=== PATIENT | female | born 1985 | race Hispanic/Latino ===

== ENCOUNTER 2019-08-21 19:56 | Emergency (ER) ==
[2019-08-21 21:29] LABS: BASO# 0.02 X1000 (0.0-0.2); BASO% 0.2 % (0.0-0.8); EOS# 0.07 X1000 (0.0-0.7); EOS% 0.6 % (0.0-10.0); HEMATOCRIT 39.8 % (37.0-47.0); HEMOGLOBIN 13.3 g/dL (12.0-16.0); IMM GRAN# 0.02 X1000 (0.0-0.04); IMM GRAN% 0.2 % (0.0-0.5); LYMPH% 20.6 % (20.5-51.1); MCH 29.1 PG (27-31); MCHC 33.4 g/dL (33-37); MCV 87.1 FL (81-99); MONO# 0.77 X1000 (0.11-0.59); MONO% 6.3 % (1.7-9.3); MPV 9.5 FL (7.4-10.4); NEUT# 8.75 X1000 (1.4-6.5); NEUT% 72.1 % (42.2-75.2); PLT 298 X1000 (130-400); RBC 4.57 XMIL (4.2-5.4); WBC 12.13 X1000 (4.8-10.8)
[2019-08-21 21:36] LABS: BILIRUBIN URINE NEGATIVE (NEGATIVE); BLOOD URINE NEGATIVE (NEGATIVE); CLARITY CLEAR (CLEAR); COLOR YELLOW; GLUCOSE URINE NEGATIVE (NEGATIVE); KETONE URINE 2+(Moderate) mg/dL (NEGATIVE); LEUKOCYTES URINE TRACE (NEGATIVE); NITRITE URINE NEGATIVE (NEGATIVE); PROTEIN URINE NEGATIVE (NEGATIVE); UROBILINOGEN URINE NORMAL
[2019-08-21] MEDS ORDERED: SODIUM CHLORIDE 0.9% INJ ONE (21:37)
[2019-08-21] MEDS ORDERED: PEPCID IV ONE (21:37)
[2019-08-21] MEDS ORDERED: NS 1,000 ML IV ONE ×2 (21:38→23:04)
[2019-08-21] MEDS ORDERED: ZOFRAN IV ONE (21:38)
[2019-08-21 21:47] LABS: URINE BACTERIA 3+ /HFP; URINE EPITHELIAL CELLS <10 /HPF (<10); URINE YEAST NONE SEEN /HPF
[2019-08-21 21:48] LABS: URINE CAST NONE SEEN /LPF
[2019-08-21 21:49] LABS: URINE SOURCE CLEAN CATCH; URINE WBC <10 /HPF (<10)
[2019-08-21 21:54] LABS: AGAP 9; ALBUMIN 4.8 g/dL (3.5-5.0); ALKALINE PHOSPHATASE 78 U/L (32-104); AMYLASE 38 U/L (20-200); BUN 6 mg/dL (8-22); CALCIUM 10.5 mg/dL (8.8-10.2); CHLORIDE 102 mmol/L (98-107); COSMO 275; CREATININE 0.5 mg/dL (0.5-0.9); ESTIMATED GFR > 60; GLUCOSE 91 mg/dL (70-104); GOT 16 U/L (10-30); GPT 17 U/L (10-36); LIPASE 16 U/L (13-60); POTASSIUM 4.3 mmol/L (3.5-5.1); SODIUM 139 mmol/L (136-145); TCO2 28 mmol/L (25-35); TOTAL PROTEIN 8.4 g/dL (6.3-8.3)
[2019-08-21] MEDS ORDERED: TORADOL IV ONE (22:08)
[2019-08-21] MEDS ORDERED: ZOFRAN IV PRN (23:07)
[2019-08-21] MEDS ORDERED: TORADOL IV PRN (23:07)
[2019-08-21] MEDS ORDERED: MORPHINE IV PRN (23:07)
--- NOTE | 2019-08-21 23:11 | PROVIDER DOCUMENTATION ---
This chart was entered by Bernardino Wade Scribe, acting as scribe for Marii Cho MD. HPI-Chest Pain - General Chief Complaint: Abdominal Pain Stated Complaint: ABD PAIN Time Seen by Provider: 08/21/19 20:46 Source: patient, family, interpreter deaf Allergies/Adverse Reactions: Patient Allergies Allergy/AdvReac Type Severity Reaction Status Date / Time No Known Allergies Allergy Verified 08/21/19 20:04 Home Medications: Home Medication List Medication Instructions Recorded Confirmed Last Taken Type Phentermine HCl 37.5 mg PO DAILY 08/21/19 08/21/19 Unknown History - History of Present Illness-CP Nature of Presenting Problem: Pt is a 34 yof who presents to the ED with a CC of chest pain/epigastric pain. Pt states her chest pain began this morning after she had some breakfast and states it is a constant pain. Pt also complains of nausea, and vomiting x1. Pt denies a fever, diarrhea, and chest wall pain. She has not tried anything at home for it. Denies any sick contacts. Location: reports: central Chest Pain Radiation: reports: epigastric Quality of Pain: reports: aching Severity in ED: mild Onset/Duration: this morning Timing: still present, constant Associated Symptoms: reports: abdominal pain, nausea, vomiting Prior Chest Pain/Cardiac Workup: reports: no prior chest pain Similar Symptoms Previously?: No Recently Seen Here or By Another Healthcare Provider: No Review of Systems - Adult - REVIEW OF SYSTEMS - ADULT Constitutional: reports: see HPI Eyes: reports: no symptoms reported Ears, Nose, Mouth & Throat: reports: no symptoms reported Cardiovascular: reports: see HPI, chest pain Respiratory: reports: no symptoms reported Gastrointestinal: reports: see HPI, abdominal pain, nausea, vomiting Genitourinary: reports: no symptoms reported Musculoskeletal: reports: no symptoms reported Integumentary: reports: no symptoms reported Neurological: reports: no symptoms reported Psychiatric: reports: no symptoms reported Endocrine: reports: no symptoms reported Hematologic/Lymphatic: reports: no symptoms reported Allergic/Immunologic: reports: no symptoms reported All Other Systems: Reviewed and Negative Past History - Adult - PAST MEDICAL HISTORY-ADULT Review of Records: reports: Old Records Reviewed, Nursing Assessment Review, Medications Reviewed, Social history reviewed & non-contributory. Major Childhood Illnesses: reports: denies history Cardiovascular: reports: denies history Respiratory: reports: denies history Gastrointestinal: reports: denies history Obstetrical/Gynecological: reports: denies history Genitourinary: reports: denies history Musculoskeletal: reports: denies history Neurological: reports: denies history Endocrine/Immune: reports: denies history Other Conditions: reports: denies history - IMMUNIZATION STATUS Childhood Immunizations: See Nurse Assessment Flu Vaccine: See Nurse Assessment - FAMILY HISTORY Family History: reviewed, not pertinent - SOCIAL HISTORY Smoking: denies, non-smoker Substance Use: none/never, denies Alcohol Use Frequency: never Physical Exam-General - PHYSICAL EXAM-ADULT Initial Vital Signs Reviewed: Yes - CONSTITUTIONAL General Appearance: alert, mild distress (uncomfortable appearing) - EYES Eyes: PERRL/EOMI - HEAD, EARS, NOSE, MOUTH & THROAT HENMT: moist mucous membranes - NECK Neck: non-tender, full range of motion - RESPIRATORY Respiratory: chest non-tender, lungs clear, normal breath sounds, no respiratory distress, no accessory muscle use - CARDIOVASCULAR Cardiovascular: normal peripheral pulses, regular rate, rhythm, no murmur - GASTROINTESTINAL (ABDOMEN) Abdominal Exam: soft, tenderness (upper abdomen, worse in epigastric area). negative: distended, guarding, rigid - MUSCULOSKELETAL Back Exam: normal inspection Extremity: normal range of motion, non-tender, normal gait - SKIN Integumentary: normal color, warm/dry - NEUROLOGIC Neurologic: grossly normal, no motor/sensory deficits - PSYCHIATRIC Psych/Mental Status: normal mood/affect, normal thought content, normal thought process, oriented x 3 - HEART Score HEART Score: History: Slightly Suspicious HEART Score: Age: < or = 45 Years HEART Score: Risk Factors for Atherosclerotic Disease: No Risk Factors Known HEART Score: Troponin: < or = Normal Limit Progress - PLAN OF CARE/RESULTS Progress/Plan/Lab Results: Vital Signs - 8 hr 08/21/19 20:00 Temperature 98.1 F Pulse Rate 104 H Respiratory Rate 20 Blood Pressure 119/84 O2 Sat by Pulse Oximetry 98 Bedside Urine ED: Urine Bedside Start: 08/21/19 20:53 Freq: ORDERED Status: Active Protocol: Activity Type Activity Date Activity User E-Sign Co-Sign Detail Recorded Client Recorded Date Recorded By Document 08/21/19 21:10 [id number] 08/21/19 21:12 [id number] 08/21/19 21:10 Point of Care [Bedside Point of Care] -Lot # [id number] - Results Negative -Control Line Visible? Yes Laboratory Results - last 24 hr 08/21/19 08/21/19 08/21/19 20:15 21:15 21:15 WBC 12.13 H RBC 4.57 Hgb 13.3 Hct 39.8 MCV 87.1 MCH 29.1 MCHC 33.4 RDW Std Deviation 12.0 Plt Count 298 MPV 9.5 Immature Gran % (Auto) 0.2 Neut % (Auto) 72.1 Lymph % (Auto) 20.6 Cocke % (Auto) 6.3 Eos % (Auto) 0.6 Baso % (Auto) 0.2 Immature Gran # (Auto) 0.02 Neut # (Auto) 8.75 H Lymph # (Auto) 2.50 Cocke # (Auto) 0.77 H Eos # (Auto) 0.07 Baso # (Auto) 0.02 Sodium 139 Potassium 4.3 Chloride 102 Carbon Dioxide 28 Anion Gap 9 BUN 6 L Creatinine 0.5 Estimated GFR/1.73 m2 > 60 BUN/Creatinine Ratio 12 Glucose 91 Calculated Osmolality 275 Calcium 10.5 H Total Bilirubin 1.40 H AST 16 ALT 17 Alkaline Phosphatase 78 Troponin T Total Protein 8.4 H Albumin 4.8 Globulin 4.0 Albumin/Globulin Ratio 1.0 Amylase 38 Lipase 16 Urine Source CLEAN CATCH Urine Color YELLOW Urine Clarity CLEAR Urine pH 8.0 Ur Specific [place] 1.010 Urine Protein NEGATIVE Urine Ketones 2+(Moderate) A Urine Blood NEGATIVE Urine Nitrite NEGATIVE Urine Bilirubin NEGATIVE Urine Urobilinogen NORMAL Urine Microscopic RBC Not Reportable Urine WBC TRACE A Urine Microscopic WBC <10 Ur Epithelial Cells <10 Urine Crystals Urine Bacteria 3+ Urine Casts NONE SEEN Urine Yeast NONE SEEN Urine Glucose NEGATIVE 08/21/19 21:58 WBC RBC Hgb Hct MCV MCH MCHC RDW Std Deviation Plt Count MPV Immature Gran % (Auto) Neut % (Auto) Lymph % (Auto) Cocke % (Auto) Eos % (Auto) Baso % (Auto) Immature Gran # (Auto) Neut # (Auto) Lymph # (Auto) Cocke # (Auto) Eos # (Auto) Baso # (Auto) Sodium Potassium Chloride Carbon Dioxide Anion Gap BUN Creatinine Estimated GFR/1.73 m2 BUN/Creatinine Ratio Glucose Calculated Osmolality Calcium Total Bilirubin AST ALT Alkaline Phosphatase Troponin T < 0.010 Total Protein Albumin Globulin Albumin/Globulin Ratio Amylase Lipase Urine Source Urine Color Urine Clarity Urine pH Ur Specific Etna Urine Protein Urine Ketones Urine Blood Urine Nitrite Urine Bilirubin Urine Urobilinogen Urine Microscopic RBC Urine WBC Urine Microscopic WBC Ur Epithelial Cells Urine Crystals Urine Bacteria Urine Casts Urine Yeast Urine Glucose Orders Category Date Time Status Admit [facility] Routine [id number] 08/21/19 23:04 Active Activity - Up Ad Jeri ORDERED Care 08/21/19 23:04 Active ED: Urine Bedside ORDERED Care 08/21/19 20:53 Active Neurological Check PRN Care 08/21/19 23:04 Active Saline Loc DIRECTED Care 08/21/19 23:04 Active Saline Loc NOW Care 08/21/19 20:53 Active Vital Signs Order Q 8-HR .ASSESS Care 08/21/19 23:04 Active NPO Diet 08/21/19 23:[address] ABD/PELVIS W/IV CONT ONLY [CT] Stat Exams 08/21/19 21:37 Taken AMYLASE [CHEM] Stat Lab 08/21/19 21:15 Completed CBC WITH ELECTRONIC DIFF [HEME] Stat Lab 08/21/19 21:15 Completed COMPREHENSIVE METABOLIC PANEL [CHEM] Stat Lab 08/21/19 21:15 Completed LIPASE [CHEM] Stat Lab 08/21/19 21:15 Completed TROPONIN T Stat Lab 08/21/19 21:[address] W/POSS RFLX CULT [URINALYSIS] Stat Lab 08/21/19 20:15 Completed URINE CULTURE [RM] Routine Lab 08/21/19 21:49 Ordered 0.9% Sodium Chloride Inj [Ns] 1,000 ml Med 08/21/19 23:04 Active IV 125 mls/hr 0.9% Sodium Chloride Inj [Ns] 1,000 ml Med 08/21/19 21:38 Discontinued IV 999 mls/hr Famotidine [Pepcid] Med 08/21/19 21:37 Discontinued 20 mg IV NOW ONE Ketorolac [Toradol] Med 08/21/19 22:08 Discontinued 30 mg IV NOW ONE Ketorolac [Toradol] Med 08/21/19 23:07 Active 30 mg IV Q6H PRN PRN Morphine Med 08/21/19 23:07 Active 2 mg IV Q2H PRN PRN Ondansetron [Zofran] Med 08/21/19 21:38 Discontinued 4 mg IV NOW ONE Ondansetron [Zofran] Med 08/21/19 23:07 Active 4 mg IV Q4H PRN PRN Piperacillin/Tazobactam [Zosyn] 4.5 gm Med 08/21/19 23:15 Active 0.9% Sodium Chloride Inj [Ns] 100 ml IV Q6H Sodium Chloride 0.9% Med 08/21/19 21:37 Discontinued 5 - 10 ml INJ NOW ONE Transfer/Admit Order [TRANSFER] Routine Transfer 08/21/19 23:08 Ordered Patient with acute appendicitis. WBC to 12, no perforation. Spoke to Dr Torres, precision dancer for general surgery. Recommends admission to [facility] and transfer to [place] and he will see her in the morning. Stable for floor. Result Diagrams: 08/21/19 21:15 08/21/19 21:15 - CT/MRI 1 CT Study: Abdomen Impression: Abnormal (Acute appendicitis, dilation measuring 11mm, no abscess or perforation) - CONSULTS/PCP/HOSPITALIST Notification #1 *Consult/PCP/Hospitalist*: Dr Torres Time Discussed: 23:10 (Admit to [place], [facility]) Consult Disposition: Admit Departure - Departure Date of Disposition Decision: 08/21/19 Time of Disposition Decision: 23:09 DIAGNOSIS: Acute appendicitis Qualifiers: Acute appendicitis type: unspecified acute appendicitis type Qualified Code(s): K35.80 - Unspecified acute appendicitis Disposition: ADMITTED INPATIENT Certified Medical Emergency: Emergent Condition: Stable Additional Freetext Instructions: ED Follow Up Instructions: You have been treated by a care provider in the Emergency Department. These instructions are being provided to you so you can have an understanding of how to care for yourself upon discharge. Upon discharge from the Emergency Department, you are responsible for making arrangements for follow-up care by a physician of your choice. Take all prescribed medications as directed. Return to the Emergency Department immediately for any new or worsening symptoms. You may call the Physician Referral phone number at [phone] to obtain a list of Physicians who are taking new patients. Referrals and Follow-Ups: None,PCP [Primary Care Provider] - - Critical Care Note This patient required my direct & personal management of CC.: No Attestation - Physician/ RUKHSANA Attestation Patient care was provided by Advanced Practice Provider:: No The physician spent face to face time with patient:: Yes Advanced Practice Provider documentation review:: Supervising physician onsite and consulted in the evaluation and care of this patient. The physician did have a face to face encounter with the patient. This chart was documented by the indicated scribe, (Bernardino Wade, Martin) and accurately reflects the services I performed and decisions made by me, Marii Cho MD, as attested by the provider's signature.
[2019-08-21] MEDS ORDERED: ZOSYN 4.5 GM in NS 100 ML IV SCH (23:15)
[2019-08-22] MEDS ORDERED: FLU VACCINE IM ONE (04:39)
--- NOTE | 2019-08-22 06:52 | Diag Imaging Result Doc PS360 ---
CT ABD/PELVIS W/IV CONT ONLY - 08/21/2019 INDICATION: r/o gb COMPARISON: None FINDINGS: The vermiform appendix is slightly dilated in size, measuring 9.4 mm proximally. However this tapers to 7.8 mm distally. There is some normal-appearing bowel gas throughout the vermiform appendix. There is really not much surrounding inflammation. No free air or free fluid. There is a left ovarian corpus luteum. There is an IUD in the uterus in good position. Urinary bladder and rectum are normal. No bowel obstruction or free air. The liver, gallbladder, spleen, pancreas, adrenals, and kidneys are normal. Bones are intact. IMPRESSION: Equivocal findings. The appendix is abnormally dilated, but there is not really much surrounding inflammation. In addition, there is some bowel gas within the appendix. Clinical correlation recommended. This exam was performed using automated exposure control, adjustment of mA or kV according to patient size, and/or use of iterative reconstruction technique Electronically signed by Manuel Valiente 08/22/2019 6:50 AM
--- NOTE | 2019-08-22 07:40 | HISTORY AND PHYSICAL ---
CHIEF COMPLAINT: Abdominal pain. CONSULTING PHYSICIAN: Emergency Department. HISTORY OF PRESENT ILLNESS: This 34-year-old otherwise healthy female who presented to the emergency department with abdominal pain that developed earlier yesterday morning, started diffusely in her abdomen. She had some nausea and anorexia associated with this. No fevers. Prior to this, her bowel function was normal with no abdominal pain. She denies any hematuria, and no vaginal bleeding. She had a test in the emergency department that was negative. She does have an IUD in place. MEDICAL HISTORY: Negative. SURGICAL HISTORY: Other than an IUD placement, it is negative. 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 Her is here with her and very attentive. No other tobacco, alcohol or drugs. FAMILY HISTORY: Negative for cancer. REVIEW OF SYSTEMS: Ten point review of systems was performed and negative other than what is mentioned in HPI. OBJECTIVE: Vital Signs: She is afebrile. No tachycardia. Blood pressures have been normal. Oxygen saturations are high 90s on room air. General: She is alert in no acute distress, and does appear somewhat uncomfortable. HEENT: No scleral icterus. No cervical mass. Cardiovascular: Normal rate. Pulmonary: No increased work of breathing. Abdomen: Soft. She is tender in the right lower quadrant, but there is no diffuse peritonitis. There are no scars on her abdomen. Psychiatric: Appropriate affect. Neurologic: No gross deficits. Peripheral vascular with no lower extremity edema. Lymphatic: No cervical, axillary or inguinal adenopathy. LABORATORY: White count 12, hematocrit 39, and platelets 298,000. Creatinine 0.5. Glucose is 91. Bilirubin is slightly elevated at 1.40. AST, ALT, and alkaline phosphatase are normal. Troponin's are normal. Lipase normal. Urinalysis shows trace white blood cells. CT scan of the abdomen and pelvis shows a dilated appendix with some vague nonspecific fluid on my read and measures 9.4 mm. Does appear to be an appendicolith, but there is air more distally. There is no evidence of bowel obstruction. No complications associated with her IBD. The gallbladder appears normal on CT scan, and there does appear to be a possible small left ovarian cyst with no evidence of complication here. ASSESSMENT/PLAN: Based off the history, imaging and exam, it is consistent with acute appendicitis. I do think it is early. I do not see signs of a rupture. I have discussed risks of bleeding, infection, damage to surrounding structures, conversion to open, anticipated recovery, possibility of intra-abdominal abscess, and anticipated hospital course if the appendix was either found to be perforated or non perforated. She understands and consents to laparoscopic appendectomy. She has received Zosyn in the emergency department, and we will continue this. We posted her for appendectomy today. cc: Haseeb Torres MD
[2019-08-22] MEDS ORDERED: LR 1,000 ML ONE (10:14)
[2019-08-22] MEDS ORDERED: SENSORCAINE 0.25%/EPI 1:200,000 ONE (10:14)
[2019-08-22] MEDS ORDERED: ROBINUL ONE ×2 (10:16→12:05)
[2019-08-22] MEDS ORDERED: QUELICIN (DOSE) ONE (10:16)
[2019-08-22] MEDS: ZOSYN 4.5 GM in NS 100 ML IV SCH ×3 (10:21→21:31)
[2019-08-22] MEDS ORDERED: FENTANYL ONE (10:23)
[2019-08-22] MEDS ORDERED: XYLOCAINE-MPF 2% ONE (10:24)
[2019-08-22] MEDS ORDERED: DIPRIVAN 1% ONE (10:24)
[2019-08-22] MEDS ORDERED: DECADRON ONE (12:05)
[2019-08-22] MEDS ORDERED: ZOFRAN ONE (12:05)
[2019-08-22] MEDS ORDERED: TORADOL ONE (12:05)
[2019-08-22] MEDS ORDERED: ZEMURON ONE (12:05)
[2019-08-22 13:03] LABS: URINE SOURCE CATH
[2019-08-22 13:06] LABS: BILIRUBIN URINE NEGATIVE (NEGATIVE); BLOOD URINE NEGATIVE (NEGATIVE); COLOR YELLOW; GLUCOSE URINE NEGATIVE (NEGATIVE); KETONE URINE 10 mg/dL (NEGATIVE); LEUKOCYTES URINE NEGATIVE (NEGATIVE); NITRITE URINE NEGATIVE (NEGATIVE); PH URINE 7.5; PROTEIN URINE NEGATIVE (NEGATIVE); SP GRAVITY URINE 1.024; TURBIDITY URINE CLEAR (CLEAR); UR EPITHELIAL CELLS <10 /HPF (<10); URINE BACTERIA NEGATIVE /HPF; URINE RBC <10 /HPF (<10); URINE WBC <10 /HPF (<10); UROBILINOGEN URINE NORMAL (NORMAL)
[2019-08-22] MEDS: DILAUDID ONE ×2 (13:17→13:24)
--- NOTE | 2019-08-22 14:02 | OPERATIVE NOTE ---
PROCEDURE DATE: 08/22/2019 PREOPERATIVE DIAGNOSIS: Acute appendicitis. POSTOPERATIVE DIAGNOSIS: Acute appendicitis. PROCEDURE PERFORMED: Laparoscopic appendectomy. ESTIMATED BLOOD LOSS: 10 mL. SPECIMEN: Appendix. ANESTHESIA: General. FINDINGS: Thickened appendix with appendicolith at the base, otherwise normal cecum, terminal ileum, adnexal structures, benign-appearing ovarian cysts that were small on the left, normal uterus, normal gallbladder, normal liver. DESCRIPTION OF PROCEDURE: Risks, benefits, and alternatives were discussed with the patient, and she consented to the procedure. She was seen preoperatively, and the surgical site was confirmed. She was taken to the operating room, placed in the supine position, and general anesthesia was induced. Gonzalez catheter was placed. The abdomen was prepped with chlorhexidine solution, and draped in the usual fashion. After a time-out, an infraumbilical incision was made, carried down to the fascia. The fascia was incised, and the abdomen was entered in an open controlled fashion. A 12 mm Julieth trocar was placed. Insufflated the abdomen to 15 mmHg. Two additional trocars of 5 mm were placed, one suprapubic, one in the left lower quadrant. The appendix was easily identifiable. It was dilated and erythematous, but it was not significantly adherent. A window was made at the base of the mesoappendix using a Gold 45 mm stapler. We divided the base of the appendix, removing it in its entirety, and a second fire removed the mesoappendix. It was placed in an EndoCatch bag. We irrigated the abdomen. We noted hemostasis, and inspected the surrounding abdomen. There were no other abnormalities or injury to the surrounding structures. The trocars were removed under direct visualization. We desufflated the abdomen, brought the appendix out through the umbilical incision, and closed the fascia with 0 Vicryl sutures. Skin was closed with 4-0 Monocryl, and Dermabond was applied. Counts were correct. The patient was transferred to the recovery room. I spoke with the family. cc: Haseeb Torres MD
[2019-08-22] MEDS: PERIDEX MT SCH (21:31)
[2019-08-23] MEDS: ZOSYN 4.5 GM in NS 100 ML IV SCH ×2 (05:37→10:49)
[2019-08-23] MEDS: PERIDEX MT SCH (10:49)
[2019-08-23 11:16] VITALS: BP 95/50
--- NOTE | 2019-08-24 05:08 | DISCHARGE SUMMARY ---
ADMISSION DATE: 08/21/2019 DISCHARGE DATE: 08/23/2019 ADMITTING DIAGNOSIS: Acute appendicitis. DISCHARGE DIAGNOSIS: Acute appendicitis. PROCEDURE PERFORMED: Laparoscopic appendectomy. HISTORY OF PRESENT ILLNESS: This 34-year-old female who presents with abdominal pain CT scan in the emergency department consistent with acute appendicitis. HOSPITAL COURSE: Patient was seen on the day of her admission for above procedure. For details, please see dictated operative note. Postoperatively, she was continued on Zosyn preoperatively. She was taken to the operating room. For details, please see dictated operative note. Postoperatively, she was admitted. She is able to void. Her incisions are intact. Pain is controlled. She is able tolerate a diet with no nausea or vomiting. No fevers. She was felt safe for discharge. Follow up appointment with me in a week. DISPOSITION: Home to self-care under the care of her . DISCHARGE MEDICATIONS: She is given Baring, Colace, and Zofran. Otherwise, continue home medications. Discharge instructions were given in written and verbal format. cc: Haseeb Torres MD
== END 2019-08-23 13:32 | disposition home or self-care (01) ==
LOC: P.ED 19:56 → 4N 19:56
PROVIDERS: ATTEND Surgery